=== PATIENT | female | born 1945 | race Caucasian/White ===

== ENCOUNTER 2022-10-27 10:26 | Inpatient (IN) | payer OTHER ==
--- OUTSIDE RECORDS SUMMARY | 2022-10-27 10:29 | XMS REPORT | Continuity of Care Document ---
:1945 Author Organization [facility] t Address [address] [place] [address] [place] [id number] Care Team Providers Name Role Phone BLAINE TURNER Primary Care Physician Unavailable Kwadwo Michel Attending Clinician Unavailable Edgar Tomlinson Attending Clinician Kimberly Tovar Attending Clinician Unavailable David Huertas MD Attending Clinician DAVID HUERTAS Attending Clinician Unavailable RADIOLOGY Attending Clinician Unavailable Radiology Attending Clinician Unavailable Doctor Unassigned, [place] Attending Clinician Unavailable Genet Auguste Attending Clinician GENET PIERCE Attending Clinician Unavailable Lavon Villanueva Attending Clinician Unavailable Kimberly Tovar Admitting Clinician Unavailable BLAINE TURNER Admitting Clinician Unavailable Physician, No Primary or Family Admitting Clinician Unavaila ble Payers Payer Name Policy Type Policy Number Effective Date Expiration Date S ource Problems Condition Condition Condition Status Onset Resolution Last Treating Co mments Source Name Details Category Date Date Treatment Clinician Date Hyperlipid Hyperlipi Problem Active 2022-05-06 Memoria emia demia 14:40:21 l (disorder) (disorder) He collins Active Problem 05/06/2022 [facility] Hypothyroi Problem Active 2022-05-06 Sari you dism Hypothyroi 14:40:21 l (disorder) dism Dinesh n (disorder) Active Problem 05/06/2022 [facility] Migraine Migraine Problem Active 2022-05-06 Memoria (disorder) (disorder) 14:40:21 l Active Juan David Problem 05/06/2022 [facility] No known No known Disease Unive rs active active ity of problems problems [facility] Allergies, Adverse Reactions, Alerts Allergy Allergy Status Severity Reaction(s) Onset Inactive Treating Comm ents Source Name Type Date Date Clinician CODEINE DRUG Active N/V 2014-02 Univers INGREDI 1-05 ity of 00:00: [place] [address] [place] [address] Codeine Propensi Active Nausea 2014-02 Univers ty to and/or 02-17 ity of adverse Vomiting 00:00: [place] reaction [address] [place] [address] s [place] CODEINE DA Active U NAUSEA 2012-02 [facility] 0-02 [place] 00:00: d 00 [facility] No Known DA Active U 2002-0 [facility] Contrast 9-13 [place] Allergie 00:00: d s 00 [facility] No Known DA Active U 2002-0 [facility] Food 9-13 [place] Allergie 00:00: d s 00 [facility] No Known DA Active U 2002-0 [facility] Other 9-13 [place] Allergie 00:00: d s 00 [facility] codeine codeine Active Ciraoria l Juan David traMADol traMADol Active Memori a l Juan David Social History Social Habit Start Date Stop Date Quantity Comments Source Exposure to Not sure University of SARS-CoV-2 (event) [place] [facility] [place] History SDVT University o f Alcohol Frequency [facility] edical Branch History [facility] University o f Alcohol Std Drinks [place] [facility] [place] History [facility] University o f Alcohol Binge [place] [facility] Alcohol intake 2021-04-15 2021-04-15 0 /d University of 00:00:00 00:00:00 [facility] Alcohol Comment 2015-02-19 2015-02-19 Social Drinker Unive rsity of 00:00:00 00:00:00 [facility] Tobacco use and 2014-12-18 2014-12-18 Never used Universit y of exposure 00:00:00 00:00:00 [facility] Sex [birth year] Universit y of 00:00:00 00:00:00 [facility] Smoking Status Start Date Stop Date Source Tobacco smoking status 2022-05-03 15:09:32 2022-05-03 15:09:32 [facility] [place] Medications Ordered Filled Start Stop Current Ordering Indication Dosage Frequency Signature Comments Components Source Medication Medication Date Date Medication? Clinician (SIG) Name Name famotidine Yes TAKE ONE Mem oria 20 mg oral 3-21 (1) l tablet 15:40: TABLET(S) Dinesh n 00 BY MOUTH AT BEDTIME. famotidine Yes TAKE ONE Mem oria 20 mg oral 3-21 (1) l tablet 15:40: TABLET(S) Dinesh n 00 BY MOUTH AT BEDTIME. Emgality 2022-0 Yes 120 mg, Memori a Prefilled 1-30 SUB-Q, l Syringe 120 17:34: qMonth, # H [place] mg/mL 00 1 kit, 9 subcutaneou Refill(s), s solution 167.64, cm, 11/03/21 10:19:00 CDT, Height, 71.42, kg, 11/03/21 10:19:00 CDT, Weight Emgality 2022-0 Yes 120 mg, Memori a Prefilled 1-30 SUB-Q, l Syringe 120 17:34: qMonth, # H [place] mg/mL 00 1 kit, 9 subcutaneou Refill(s), s solution 167.64, cm, 11/03/21 10:19:00 CDT, Height, 71.42, kg, 11/03/21 10:19:00 CDT, Weight Emgality 2021-0 Yes 120 mg, Memori a Prefilled 7-19 SUB-Q, l Syringe 120 15:30: qMonth, # H [place] mg/mL 00 1 kit, 9 subcutaneou Refill(s) s solution Emgality 2-0 Yes 120 mg, Memori a Prefilled 7-19 SUB-Q, l Syringe 120 15:30: qMonth, # H [place] mg/mL 00 1 kit, 9 subcutaneou Refill(s) s solution SUMAtriptan Yes See Memori a 100 mg oral 5-13 Instructio l tablet 22:21: ns, TAKE [place] 00 ONE (1) TABLET(S) BY MOUTH NEEDED FOR MIGRAINE (MAX OF 1 TAB DAILY)., # 9 ea, 2 Refill(s), Pharmacy: [place] [facility] [id number], 167.64, cm, 05/03/21 12:09:00 CDT, Height, 81.364, kg, 05/03/21 12:09:00 CDT, Weight SUMAtriptan Yes See Memori a 100 mg oral 5-13 Instructio l tablet 22:21: ns, TAKE Juan David 00 ONE (1) TABLET(S) BY MOUTH NEEDED FOR MIGRAINE (MAX OF 1 TAB DAILY)., # 9 ea, 2 Refill(s), Pharmacy: [facility] [id number], 167.64, cm, 05/03/21 12:09:00 CDT, Height, 81.364, kg, 05/03/21 12:09:00 CDT, Weight 1 ML 2020-02 Yes 120 mg, Memoria galcanezuma 1-03 SUB-Q, l b-gnlm 120 16:46: qMonth, # He rmann MG/ML 00 1 kit, 3 Prefilled Refill(s) Syringe [Emgality] 1 ML 2020-02 Yes 120 mg, Memoria galcanezuma 1-03 SUB-Q, l b-gnlm 120 16:46: qMonth, # He r[place] MG/ML 00 1 kit, 3 Prefilled Refill(s) Syringe [Emgality] Aspirin, Yes 81mg Take 81 mg Uni vers Buffered 11-11 by mouth ity of (BUFFERIN) 10:13: daily. [place] 81 mg 27 Medical tablet Branch Flaxseed Yes 1{capsu Take 1 Cap Univers Oil ,030 11-11 le} by mouth ity of mg Cap 10:13: daily. [place] [address] Medical Branch CALCIUM Yes 1{tbl} Take 1 Tab Un alaina CARBONATE/V 11-11 by mouth ity of ITAMIN D3 10:13: daily. [place] (VITAMIN 27 Medical D-3 ORAL) Branch meloxicam Yes [id number] 7.5mg Take 1 Univers 7.5 mg 11-11 tablet by ity of tablet 00:00: mouth [place] 00 daily. Medical Branch 1 ML 2018-02 Yes 120 mg, Memoria galcanezuma -22 SUB-Q, l b-gnlm 120 17:20: qMonth, # He rmann MG/ML 00 4 syr, 3 Prefilled Refill(s), Syringe other [Emgality] 1 ML 2018-02 Yes 120 mg, Memoria galcanezuma -22 SUB-Q, l b-gnlm 120 17:20: qMonth, # He rmann MG/ML 00 4 syr, 3 Prefilled Refill(s), Syringe other [Emgality] pramipexole 2018-02 Yes 0.75 mg = M emoria 0.75 mg 03-06 1 tab, PO, l oral tablet 17:07: Daily, # He rmann 00 30 tab, 0 Refill(s) pramipexole 2018-02 Yes 0.75 mg = M emoria 0.75 mg 03-06 1 tab, PO, l oral tablet 17:07: Daily, # He rmann 00 30 tab, 0 Refill(s) Emgality-gn Yes See Memori a lm 120 9-04 Instructio l mg/mL 18:33: ns, 120 mg Dinesh n subcutaneou 55 IM Q30D / s solution Samples given 2-120mg inj- Pens, # 2 pen(s), 0 Refill(s), given to patient Emgality-gn Yes See Memori a lm 120 9-04 Instructio l mg/mL 18:33: ns, 120 mg Dinesh n subcutaneou 55 IM Q30D / s solution Samples given 2-120mg inj- Pens, # 2 pen(s), 0 Refill(s), given to patient Emgality-gn Yes 120 mg, Mem oria lm 120 5-16 SUB-Q, l mg/mL 22:28: qMonth, [place] subcutaneou 23 240 mg s solution first month then 120mg q month, # 4 syr, 3 Refill(s), Pharmacy: [facility] Emgality-gn Yes 120 mg, Mem oria lm 120 5-16 SUB-Q, l mg/mL 22:28: qMonth, [place] subcutaneou 23 240 mg s solution first month then 120mg q month, # 4 syr, 3 Refill(s), Pharmacy: [facility] No 120 mg, Mem oria lm 120 5-14 SUB-Q, l mg/mL 18:43: qMonth, [place] subcutaneou 00 240 mg s solution first month then 120mg q month, X 180 day, # 4 syr, 3 Refill(s), Pharmacy: [facility] No 120 mg, Mem oria lm 120 5-14 SUB-Q, l mg/mL 18:43: qMonth, Juan David subcutaneou 00 240 mg s solution first month then 120mg q month, X 180 day, # 4 syr, 3 Refill(s), Pharmacy: [facility] [place] 7 Yes 1 patch, Me moria mcg/hr 3 TOP, l transdermal 16:46: qWeek, # 4 Juan David film, 00 patch, 0 extended Refill(s) release fluticasone Yes NASAL, Tee lucio nasal 0.05 3- Daily, 0 l mg/inh 16:46: Refill(s) Dinesh n spray 00 diclofenac 2018- Yes 75 mg = 1 Me moria sodium 75 - tab, PO, l mg oral 16:46: BID, 0 Juan David enteric 00 Refill(s) coated, delayed-rel ease tablet naloxone-pe Yes 1 tab, PO, Memoria ntazocine - Q4H, 0 l 0.5 mg-50 16:46: Refill(s) Her wise mg oral 00 tablet omeprazole 2018- Yes 40 mg = 1 Me moria 40 mg oral 3-29 cap, PO, l delayed 16:46: Daily, # Dinesh n release 00 30 cap, 0 capsule Refill(s) [place] 7 Yes 1 patch, Me moria mcg/hr 3-29 TOP, l transdermal 16:46: qWeek, # 4 [place] film, 00 patch, 0 extended Refill(s) release fluticasone 2018-0 Yes NASAL, Tee lucio nasal 0.05 3-29 Daily, 0 l mg/inh 16:46: Refill(s) Dinesh n spray 00 diclofenac Yes 75 mg = 1 Me moria sodium 75 3-29 tab, PO, l mg oral 16:46: BID, 0 Juan David enteric 00 Refill(s) coated, delayed-rel ease tablet naloxone-pe Yes 1 tab, PO, Memoria ntazocine 3-29 Q4H, 0 l 0.5 mg-50 16:46: Refill(s) Her wise mg oral 00 tablet omeprazole Yes 40 mg = 1 Me moria 40 mg oral 3-29 cap, PO, l delayed 16:46: Daily, # Dinesh n release 00 30 cap, 0 capsule Refill(s) rosuvastati Yes 5 mg = 1 Me moria n 5 mg oral 3-29 tab, PO, l tablet 16:35: Bedtime, # Jovita nn 00 30 tab, 0 Refill(s) rosuvastati Yes 5 mg = 1 Me moria n 5 mg oral 3-29 tab, PO, l tablet 16:35: Bedtime, # Jovita nn 00 30 tab, 0 Refill(s) levothyroxi Yes 125 Memori a ne 125 mcg 3-29 microgram l (0.125 mg) 16:29: = 1 tab, Her wise oral tablet 00 PO, Daily, # 30 tab, 0 Refill(s) levothyroxi Yes 125 Memori a ne 125 mcg 3-29 microgram l (0.125 mg) 16:29: = 1 tab, Her wise oral tablet 00 PO, Daily, # 30 tab, 0 Refill(s) GABAPENTIN 2017-02 Yes TAKE ONE Uni vers 300 mg 0-11 (1) ity of capsule 00:00: [place] 00 BY MOUTH Medical THREE Branch TIMES A DAY FOR 30 DAYS. pentazocine Yes TAKE ONE Un alaina -naloxone 1-10 (1) TO TWO ity of 50-0.5 mg 00:00: (2) [place] tablet 00 TABLET(S) Medical BY MOUTH Branch EVERY SIX HOURS NEEDED FOR PAIN. omeprazole 2016-02 Yes 40mg Take 40 mg U nivers (PRILOSEC) 2-06 by mouth ity o f 40 mg 13:07: daily. [place] capsule 40 Medical Branch ibuprofen 2016-02 Yes 800mg Take 800 Uni vers (MOTRIN) 2-06 mg by ity of 800 mg 13:07: mouth [place] tablet 40 every 6 Medical (six) Branch hours as needed. VITAMIN B 2016-02 Yes 1{tbl} Take 1 Tab Univers COMPLEX 2-06 by mouth ity of ORAL 13:07: daily. [place] 40 Medical Branch meloxicam Yes 15mg Take 15 mg Un alaina (MOBIC) 15 2-15 by mouth ity o f mg tablet 15:40: daily. [place] 32 Medical Branch sumatriptan Yes 100mg Take 100 U nivers (IMITREX) 2-15 mg by ity of 100 mg 15:40: mouth as [place] tablet 32 needed for Medical Migraine. Branch acetaminoph Yes 1{tbl} Take 1 Un alaina en-codeine 2-06 tablet by ity of (TYLENOL-CO 00:00: mouth [place] DEINE #3) 00 every 4 Medical 300-30 mg (four) Branch tablet hours as needed for Pain (scale 4-6) or Pain (scale 7-10). levothyroxi 2015-02 Yes 125ug Take 125 U nivers ne 125 mcg 1-23 mcg by ity of tablet 00:00: mouth [place] 00 daily. Medical Branch montelukast Yes 10mg Take 10 mg Univers (SINGULAIR) 9-30 by mouth ity of 10 mg 00:00: daily. [place] tablet 00 Medical Branch rosuvastati Yes 5mg Take 5 mg U nivers n (CRESTOR) 9-29 by mouth ity of 5 mg tablet 00:00: [place]. [place] 00 [place] pantoprazol Yes Univer s e 9-29 ity of (PROTONIX) 00:00: [place] 40 mg EC 00 Medical tablet Branch lidocaine-p Yes 1{dose} Apply 1 Univers rilocaine 9-23 Dose to ity of (EMLA) 00:00: area(s) as [place] 2.5-2.5 % 00 needed. Medical cream Branch Vital Signs Vital Name Observation Time Observation Value Comments Source Systolic blood 2021-04-15 16:27:00 118 mm[Hg] Univer sity of pressure [facility] Diastolic blood 2021-04-15 16:27:00 69 mm[Hg] Unive rsity of pressure [facility] Heart rate 2021-04-15 16:27:00 63 /min [facility]i [facility] Body height 2021-04-15 16:27:00 [facility] weight 2021-04-15 16:27:00 79.833 [facility] BMI 2021-04-15 16:27:00 [facility] O[facility] saturation in 2021-04-15 16:27:00 99 /min [facility] Arterial blood by [facility] Pulse oximetry Branch Systolic (mm Hg) 2022-05-03 15:09:00 Tee rial [place] Diastolic (mm Hg) 2022-05-03 15:09:00 Mem orial Juan David Heart Rate 2022-05-03 15:09:00 [facility] Juan David Height 2022-05-03 15:09:00 5 [ft_i] [facility] David Weight 2022-05-03 15:09:00 [facility] Calculated 2022-05-03 15:09:00 Memori al [place] Systolic (mm Hg) 2021-11-03 15:09:00 Tee rial [place] Diastolic (mm Hg) 2021-11-03 15:09:00 Mem orial [place] Heart Rate 2021-11-03 15:09:00 [facility] [place] Respitory Rate 2021-11-03 15:09:00 Memori al Juan David Height 2021-11-03 15:09:00 167.64 cm [facility] [place] Weight 2021-11-03 15:09:00 [facility] Juan David BMI Calculated 2021-11-03 15:09:00 [facility] [place] Systolic (mm Hg) 2021-05-03 16:59:00 Tee rial Juan David Diastolic (mm Hg) 2021-05-03 16:59:00 Mem orial [place] Heart Rate 2021-05-03 16:59:00 [facility] Juan David Respitory Rate 2021-05-03 16:59:00 [facility] [place] Height 2021-05-03 16:59:00 167.64 cm [facility] David Weight 2021-05-03 16:59:00 [facility] [place] BMI Calculated 2021-05-03 16:59:00 [facility] [place] Systolic (mm Hg) 2020-07-31 19:55:00 Tee rial [place] Diastolic (mm Hg) 2020-07-31 19:55:00 Mem orial Juan David Heart Rate 2020-07-31 19:55:00 [facility] [place] Respitory Rate 2020-07-31 19:55:00 Memori al Juan David Height 2020-07-31 19:55:00 170.18 cm [facility] Juan David Weight 2020-07-31 19:55:00 [facility] Juan David BMI Calculated 2020-07-31 19:55:00 [facility] [place] Systolic (mm Hg) 2019-12-10 16:45:00 Tee rial Juan David Diastolic (mm Hg) 2019-12-10 16:45:00 Mem orial Juan David Heart Rate 2019-12-10 16:45:00 [facility] [place] Respitory Rate 2019-12-10 16:45:00 Memori al Juan David Height 2019-12-10 16:45:00 167.64 cm [facility] Juan David Weight 2019-12-10 16:45:00 [facility] [place] BMI Calculated 2019-12-10 16:45:00 Memori al Juan David Diastolic (mm Hg) 2019-06-27 14:08:00 Mem orial Juan David Heart Rate 2019-06-27 14:08:00 [facility] David Respitory Rate 2019-06-27 14:08:00 [facility] [place] Temperature Oral (F) 2019-06-27 14:08:00 98.0 F [facility] [place] Height 2019-06-27 14:08:00 170.18 cm [facility] [place] Weight 2019-06-27 14:08:00 [facility] [place] BMI Calculated 2019-06-27 14:08:00 [facility] [place] Systolic (mm Hg) 2019-06-27 14:08:00 Tee rial [place] Systolic (mm Hg) 2019-05-15 15:06:00 Tee rial Juan David Diastolic (mm Hg) 2019-05-15 15:06:00 Mem o[facility] [place] Heart Rate 2019-05-15 15:06:00 [facility] [place] Respitory Rate 2019-05-15 15:06:00 [facility] [place] Temperature Oral (F) 2019-05-15 15:06:00 97.9 F [facility] [place] Height 2019-05-15 15:06:00 182.88 cm [facility] [place] Weight 2019-05-15 15:06:00 [facility] [place] BMI Calculated 2019-05-15 15:06:00 Memori al Juan David Heart Rate 2019-01-04 16:55:00 [facility] David Respitory Rate 2019-01-04 16:55:00 Memori al Juan David Height 2019-01-04 16:55:00 170.18 cm [facility] Juan David Weight 2019-01-04 16:55:00 [facility] Juan David BMI Calculated 2019-01-04 16:55:00 Memori al Juan David Systolic (mm Hg) 2019-01-04 16:55:00 Tee rial Juan David Diastolic (mm Hg) 2019-01-04 16:55:00 Mem orial [place] Weight 2018-06-26 18:11:00 [facility] Juan David BMI Calculated 2018-06-26 18:11:00 [facility] [place] Respitory Rate 2018-06-26 18:11:00 Memori [facility] [place] Heart Rate 2018-06-26 18:11:00 [facility] Juan David Systolic (mm Hg) 2018-06-26 18:11:00 Tee rial Juan David Diastolic (mm Hg) 2018-06-26 18:11:00 Mem orial Juan David Height 2018-06-26 18:11:00 170.18 cm [facility] [place] BMI Calculated 2018-06-07 15:49:00 Memori al [place] Height 2018-06-07 15:49:00 170.18 cm [facility] [place] Weight 2018-06-07 15:49:00 [facility] Juan David Heart Rate 2018-06-07 15:49:00 [facility] [place] Systolic (mm Hg) 2018-06-07 15:49:00 Tee rial Juan David Diastolic (mm Hg) 2018-06-07 15:49:00 Mem orial [place] Respitory Rate 2018-06-07 15:49:00 Memori al [place] Procedures Procedure Date / Time Performed Performing Clinician [facility] e Laminectomy for [facility] [place] decompression and exploration Encounters Start End Encounter Admission Attending Care Care Encounter Source Date/Time Date/Time Type Type Clinicians Facility Department ID 2021-03-10 Outpatient Anand [facility] [id number] Common 13:12:50 [facility] [id number] [facility] 2022-11-09 2022-11-09 Outpatient MHIE MHIE [id number] Memoria 10:00:00 10:00:00 17 darcy Fall 2022-11-09 2022-11-09 Outpatient MHIE MHIE [id number] Memoria 10:00:00 10:00:00 17 darcy Fall 2022-10-25 2022-10-25 Outpatient MHIE MHIE [id number] Memoria 10:00:00 10:00:00 16 darcy Fall 2022-10-25 2022-10-25 Outpatient MHIE MHIE [id number] Memoria 10:00:00 10:00:00 16 darcy Fall 2022-05-03 2022-05-04 Outpatient MHIE MNA [id number] Memoria 15:00:00 04:59:59 Neurology 15 l Pietro Terryann 2022-05-03 2022-05-04 Outpatient MHIE MNA [id number] Memoria 15:00:00 04:59:59 Neurology 15 l [place] Terryann 2022-05-03 2022-05-03 Outpatient KARINA TomlinsonSCHER MHMISCHER [id number] 10:00:00 23:59:59 Edgar 15 Black 2022-05-03 2022-05-03 Outpatient MHIE MHIE [id number] Memoria 10:00:00 10:00:00 15 darcy Fall 2021-11-03 2021-11-04 Outpatient nullFlavo MNA [id number] Memoria 15:00:00 04:59:59 r Neurology 14 l Pietro Terryann 2021-11-03 2021-11-04 Outpatient nullFlavo MNA [id number] Memoria 15:00:00 04:59:59 r Neurology 14 l Pietro Terryann 2021-11-03 2021-11-03 Outpatient ASIM TomlinsonMISCHER MHMISCHER [id number] 10:00:00 23:59:59 Edgar 14 Black 2021-11-03 2021-11-03 Outpatient MHIE MHIE [id number] Memoria 10:00:00 10:00:00 14 darcy Fall 2021-05-06 2021-05-06 Outpatient RM Tovar, [facility] JEY [id number] [facility] 12:00:00 12:00:[address] [facility] 2021-05-03 2021-05-04 Outpatient nullFlavo MNA [id number] Memoria 16:45:00 04:59:59 r Neurology 13 l Pietro Juan David 2021-05-03 2021-05-04 Outpatient nullFlavo MNA [id number] Memoria 16:45:00 04:59:59 r Neurology 13 l Pietro Juan David 2021-05-03 2021-05-03 Outpatient Bushra MHMISCHER MHMISCHER [id number] 11:45:00 23:59:59 Edgar 13 Black 2021-05-03 2021-05-03 Outpatient MHIE MHIE [id number] Memoria 11:45:00 11:45:00 13 darcy Juan David 2021-04-15 2021-04-15 [facility] [id number] [facility] 10:30:00 11:40:21 [id number] it y of АННА [id number] Ozzie as CATHY?BLEA [id number] [address] MEDICAL OFFICE BUILDING 2021-04-15 2021-04-15 Outpatient R TU [facility] [id number] Univers 10:30:00 11:40:21 DAVID valle [facility] 2021-04-15 2021-04-15 Out[facility] [id number] Univers 10:30:00 10:30:00 [facility] 2021-04-06 2021-04-06 Outpatient R RADIOLOGY [facility] [id number] Univers 09:00:17 23:59:00 ity [facility] 2021-04-06 2021-04-06 Hospital Radiology [facility] [id number] Univers 09:00:00 23:59:00 Encounter АННА [id number] ity [facility] [id number] [place] [id number] [facility] 807 Branch 2021-04-06 2021-04-06 Orders Doctor SHWETA [id number] Univers 00:00:00 00:00:00 Only Unassigned, SARA [id number] ity of [place] [facility] [id number] [facility] [place] [facility] [id number] [facility] 009 Branch 2020-07-31 2020-08-01 Outpatient nullFlavo MNA [id number] Memoria 20:00:00 04:59:59 r Neurology 12 l Pietro Fall 2020-07-31 2020-08-01 Outpatient nullFlavo MNA [id number] Memoria 20:00:00 04:59:59 r Neurology 12 l Pietro Terryann 2020-07-31 2020-07-31 Outpatient KARINA TomlinsonSCHZIYAD MISCHER [id number] 15:00:00 23:59:59 Edgar Noam Cleaning 2020-07-31 2020-07-31 Outpatient MHIE MHIE [id number] Memoria 15:00:00 15:00:00 12 darcy Fall 2020-07-16 2020-07-16 Ambulatory nullFlavo MNA [id number] Memoria 20:30:00 20:30:00 Pre-Reg r Neurology 11 l Pietro Fall 2020-07-16 2020-07-16 Ambulatory nullFlavo MNA [id number] Memoria 20:30:00 20:30:00 Pre-Reg r Neurology 11 l Pietro Fall 2020-07-16 2020-07-16 Outpatient MHIE MHIE [id number] Memoria 15:30:00 15:30:00 11 darcy Fall 2020-07-16 2020-07-16 Outpatient KARINA TomlinsonSCHZIYAD MISCHER [id number] 15:30:00 15:30:00 Edgar Josette Cleaning 2020-07-09 2020-07-09 Ambulatory nullFlavo MNA [id number] Memoria 20:15:00 20:15:00 Pre-Reg r Neurology 10 darcy Terryann 2020-07-09 2020-07-09 Ambulatory nullFlavo MNA [id number] Memoria 20:15:00 20:15:00 Pre-Reg r Neurology 10 l Pietro Fall 2020-07-09 2020-07-09 Outpatient MHIE MHIE [id number] Memoria 15:15:00 15:15:00 10 l Juan David 2020-07-09 2020-07-09 Outpatient Bushra MHINSCHER MHMISCHER [id number] 15:15:00 15:15:00 Edgarmayda Cleaning 2020-03-17 2020-03-19 Outside nullFlavo MNA [id number] Memoria 21:38:32 05:59:59 Medical r Neurology 05 l Records Pietro Fall 2020-03-17 2020-03-19 Outside nullFlavo MNA [id number] Memoria 21:38:32 05:59:59 Medical r Neurology 05 l Records Pietro Fall 2020-03-17 2020-03-18 Outpatient MHMISCHER MHMISCHER [id number] 15:38:32 23:59:59 05 2020-03-11 2020-03-13 Outside nullFlavo MNA [id number] Memoria 15:29:44 05:59:59 Medical r Neurology 04 l Records Pietro Fall 2020-03-11 2020-03-13 Outside nullFlavo MNA [id number] Memoria 15:29:44 05:59:59 Medical r Neurology 04 l Records Pietro Fall 2020-03-11 2020-03-13 Outside nullFlavo MNA [id number] Memoria 15:28:50 05:59:59 Medical r Neurology 03 l Records Pietro Fall 2020-03-11 2020-03-13 Outside nullFlavo MNA [id number] Memoria 15:28:50 05:59:59 Medical r Neurology 03 l Records Pietro Fall 2020-03-11 2020-03-12 Outpatient MHMISCHER MHMISCHER [id number] 09:29:44 23:59:59 04 2020-03-11 2020-03-12 Outpatient MHMISCHER MHMISCHER [id number] 09:28:50 23:59:59 03 2020-02-05 2020-02-07 Outside nullFlavo MNA [id number] Memoria 17:25:21 05:59:59 Medical r Neurology 02 l Records Pietro Fall 2020-02-05 2020-02-07 Outside nullFlavo MNA [id number] Memoria 17:25:21 05:59:59 Medical r Neurology 02 l Records Pietro Fall 2020-02-05 2020-02-06 Outpatient MHMISCHER MHMISCHER [id number] 11:25:21 23:59:59 02 2019-12-10 2019-12-11 Outpatient nullFlavo MNA [id number] Memoria 16:45:00 04:59:59 r Neurology 09 l Pietro [place] 2019-12-10 2019-12-11 Outpatient nullFlavo MNA [id number] Memoria 16:45:00 04:59:59 r Neurology 09 l Pietro Juan David 2019-12-10 2019-12-10 [facility] [id number] 11:45:00 23:59:59 Edgar 09 Black 2019-12-10 2019-12-10 Outpatient MHIE MHIE [id number] Memoria 11:45:00 11:45:00 09 l [place] 2019-11-14 2019-11-14 Ambulatory nullFlavo MNA [id number] Memoria 18:15:00 18:15:00 Pre-Reg r Neurology 08 l Pietro [place] 2019-11-14 2019-11-14 Ambulatory nullFlavo MNA [id number] Memoria 18:15:00 18:15:00 Pre-Reg r Neurology 08 l [facility] [place] 2019-11-14 2019-11-14 Outpatient Bush[facility] [id number] 13:15:00 13:15:00 Edgar 08 [facility] 2019-11-12 2019-11-12 [facility] [id number] Univers 10:54:12 23:59:00 Encounter [facility] [id number] ity of Surgical [id number] Ozzie as Specialti [phone] Ut dical es [address] [place] 2019-11-12 2019-11-12 Office [facility] [id number] Univers 10:00:38 10:15:38 Visit Genet [facility] [id number] it y of Surgical [id number] Ozzie as Specialti [phone] Ut dical [address] 2019-11-12 2019-11-12 Outpatient Fely KARI [facility] [id number] Univers 10:00:00 10:00:00 GENET [facility] 2019-10-18 2019-10-18 Ambulatory nullFlavo MNA [id number] Memoria 20:00:00 20:00:00 Pre-Reg r Neurology 07 l [facility] [place] 2019-10-18 2019-10-18 Ambulatory nullFlavo MNA [id number] Memoria 20:00:00 20:00:00 Pre-Reg r Neurology 07 l Pietro Fall 2019-10-18 2019-10-18 Outpatient MHIE MHIE [id number] Memoria 15:00:00 15:00:00 08 l Juan David 2019-10-18 2019-10-18 Outpatient MHIE MHIE [id number] Memoria 15:00:00 15:00:00 07 l Juan David 2019-10-18 2019-10-18 Outpatient ASIM TomlinsonMISCHER MHMISCHER [id number] 15:00:00 15:00:00 Edgar 07 Black 2019-09-27 2019-09-27 Outpatient GLORIA Valdez JEY [id number] [facility] 12:00:00 12:00:[id number] [facility] 2019-06-27 2019-06-28 Outpatient nullFlavo MNA [id number] Memoria 14:00:00 04:59:59 r Neurology 06 l Pietro Fall 2019-06-27 2019-06-28 Outpatient nullFlavo MNA [id number] Memoria 14:00:00 04:59:59 r Neurology 06 l [facility] [place] 2019-06-27 2019-06-27 Outpatient ASIM TomlinsonMISCHER MHMISCHER [id number] 09:00:00 23:59:59 Edgar 06 Black 2019-06-27 2019-06-27 Outpatient MHIE MHIE [id number] Memoria 09:00:00 09:00:00 06 darcy Fall 2019-01-04 2019-01-05 Outpatient nullFlavo MNA [id number] Memoria 17:00:00 05:59:59 r Neurology 05 darcy Fall 2019-01-04 2019-01-05 Outpatient nullFlavo MNA [id number] Memoria 17:00:00 05:59:59 r Neurology 05 darcy Fall 2019-01-04 2019-01-04 [facility] [id number] 11:00:00 23:59:59 Edgar Yesi Cleaning 2019-01-04 2019-01-04 Outpatient MHIE MHIE [id number] Memoria 11:00:00 11:00:00 05 darcy Fall 2018-11-30 2018-11-30 Ambulatory nullFlavo MNA [id number] Memoria 18:00:00 18:00:00 Pre-Reg r Neurology 04 l Pietro Fall 2018-11-30 2018-11-30 Ambulatory nullFlavo MNA [id number] Memoria 18:00:00 18:00:00 Pre-Reg r Neurology 04 l Pietro Fall 2018-11-30 2018-11-30 [facility] [id number] 13:00:00 13:00:00 Edgar Jamie Cleaning 2018-11-20 2018-11-20 Outpatient MHIE MHIE [id number] Memoria 15:00:00 15:00:00 04 darcy Fall 2018-09-24 2018-09-26 Outside nullFlavo MNA [id number] Memoria 14:44:23 04:59:59 Medical r Neurology 01 l Records Pietro Fall 2018-09-24 2018-09-26 Outside nullFlavo MNA [id number] Memoria 14:44:23 04:59:59 Medical r Neurology 01 l Loco Fall 2018-09-24 2018-09-25 Outpatient MHMISCHER MHMISCHER [id number] 09:44:23 23:59:59 2018-09-05 2018-09-07 Outside nullFlavo MNA [id number] Memoria 14:48:05 04:59:59 Medical r Neurology 00 l Records Pietro Fall 2018-09-05 2018-09-07 Outside nullFlavo MNA [id number] Memoria 14:48:05 04:59:59 Medical r Neurology 00 l Loco Fall 2018-09-05 2018-09-06 Outpatient MHMISCHER MHMISCHER [id number] 09:48:05 23:59:59 00 2018-08-21 2018-08-21 Ambulatory nullFlavo MNA [id number] Memoria 18:00:00 18:00:00 Pre-Reg r Neurology 03 l Pietro Fall 2018-08-21 2018-08-21 Ambulatory nullFlavo MNA [id number] Memoria 18:00:00 18:00:00 Pre-Reg r Neurology 03 l Pietro Fall 2018-08-21 2018-08-21 Outpatient MHIE MHIE [id number] Memoria 13:00:00 13:00:00 03 darcy Fall 2018-08-21 2018-08-21 Outpatient [facility] [id number] 13:00:00 13:00:00 Edgar 03 Black 2018-06-26 2018-06-27 Outpatient nullFlavo MNA [id number] Memoria 18:00:00 04:59:59 r Neurology 02 darcy Terryann 2018-06-26 2018-06-27 Outpatient nullFlavo MNA [id number] Memoria 18:00:00 04:59:59 r Neurology 02 darcy Terryann 2018-06-26 2018-06-26 Outpatient Bushra MANJUSCHZIYAD [facility] [id number] 13:00:00 23:59:59 Edgar Florian Black 2018-06-26 2018-06-26 Outpatient MHIE MHIE [id number] Memoria 13:00:00 13:00:00 02 darcy Fall 2018-06-07 2018-06-08 Outpatient nullFlavo MNA [id number] Memoria 15:45:00 04:59:59 r Neurology 01 darcy Terryann 2018-06-07 2018-06-08 Outpatient nullFlavo MNA [id number] Memoria 15:45:00 04:59:59 r Neurology 01 darcy Terryann 2018-06-07 2018-06-07 Outpatient ASIM TomlinsonINSCHER MISCHER [id number] 10:45:00 23:59:59 Edgar Black 2018-06-07 2018-06-07 Outpatient Bushra MISCHER MHMISCHER [id number] 10:45:00 23:59:59 Edgar [facility] 2018-06-07 2018-06-07 Outpatient Bushra MHMISCHER MHMISCHER [id number] 10:45:00 23:59:59 Edgar [facility] 2018-06-07 2018-06-07 Outpatient Bushra MISCHER MHMISCHER [id number] 10:45:00 23:59:59 Edgar [facility] 2018-06-07 2018-06-07 Outpatient MHIE MHIE [id number] Memoria 10:45:00 10:45:00 01 darcy Fall 2018-05-11 2018-05-11 Outpatient MHIE MHIE [id number] Memoria 11:30:00 11:30:00 00 darcy Fall 2018-05-11 2018-05-11 Outpatient MHIE MHIE [id number] Memoria 11:30:00 11:30:00 00 darcy Fall Results This patient has no known results.
[2022-10-27 11:14] LABS: Absolute Lymphocytes (CBC) 0.7 K/uL (0.7-4.9); Lymphocytes % 12.9 % (15.3-44.8); MCV 87.9 fL (80-100); MPV 6.8 fL (7.6-11.3); Platelets 331 thou/uL (152-406); RBC Red Blood Cell Count 3.86 M/uL (3.86-4.86)
[2022-10-27 11:16] LABS: Protime INR 1.17
[2022-10-27 11:32] LABS: Albumin 2.5 g/dL (3.4-5.0); Bilirubin Direct 0.1 mg/dL (0-0.2); Bilirubin Indirect, Calculated 0.4 mg/dL (0.2-0.8); Bilirubin Total 0.5 mg/dL (0.2-1.0); C-Reactive Protein 90.9 mg/L (<3.00); Magnesium 1.7 mg/dL (1.6-2.4); Protein, Total 6.3 g/dL (6.4-8.2)
[2022-10-27] MEDS ORDERED: CEFTRIAXONE 1000 MG/VIAL ONE (11:54)
[2022-10-27] MEDS ORDERED: AZITHROMYCIN 500 MG INJ IVPB ONE (11:54)
[2022-10-27] MEDS ORDERED: FAMOTIDINE 20 MG/2 ML VIAL IV ONE (11:55)
[2022-10-27] MEDS ORDERED: NA CHLORIDE 0.9% 1,000 ML ONE (11:55)
[2022-10-27] MEDS ORDERED: NA CHLORIDE 0.9% 250 ML ONE (11:55)
--- NOTE | 2022-10-27 12:17 | RAD REPORT ---
EXAM DESCRIPTION: RADChest Single View10/27/2022 11:57 am CLINICAL HISTORY: Congestion;Cough;Dyspnea COMPARISON: Chest Single View dated 10/24/2022; Chest Single View dated 10/21/2022; Chest Pa And Lat (2 Views) dated 08/27/2021; Chest For Pe Angio dated 10/24/2022 TECHNIQUE: Portable AP view of the chest. FINDINGS: Patchy peripheral predominant airspace opacities more so at the bases, probably stable sin ce the prior CT. No pneumothorax or effusion. The cardiomediastinal contours are unremarkable. IMPRESSION: Stable bilateral basal predominant and peripheral airspace opacities as above, concernin g for pneumonia.
[2022-10-27] MEDS ORDERED: METHYLPREDNISOLONE 125 MG INJ ONE (12:46)
[2022-10-27] MEDS ORDERED: ASPIRIN 81 MG CHEWABLE TABLET ONE (12:46)
[2022-10-27] MEDS ORDERED: MONTELUKAST 10 MG TAB PO ONE (13:00)
--- NOTE | 2022-10-27 13:50 | ER ---
Nurse's Notes [facility] Name: Ольга Ricci Age: 77 yrs Sex: Female : 1945 Arrival Date: 10/27/2022 Time: 10:26 Bed 6 Private MD: Diagnosis: Pneumonia due to SARS-associated coronavirus;SARS-associated coronavirus as the cause of diseases classified elsewhere;Hypoxemia;Pneumonia due to other specified infectious organisms-Bilateral Presentation: 10/27 10:50 Chief complaint: EMS states: recently diagnosed with COVID at end of Sep, she c/o diff iw breathing since last night , her home pulse ox read 70 % , EMS got 90 on RA, also reports vomiting started last night, she has had diarrhea since she was diagnosed , states they told her she has pneumonia and started her on abx , c/o right chest pain, worse when coughing. Coronavirus screen: Client presents with at least one sign or symptom that may indicate coronavirus-19. Ebola Screen: Patient negative for fever greater than or equal to 101.5 degrees Fahrenheit, and additional compatible Ebola Virus Disease symptoms Patient denies exposure to infectious person. Patient denies travel to an Ebola-affected area in the 21 days before illness onset. No symptoms or risks identified at this time. Initial Sepsis Screen: Does the patient have a suspected source of infection?. Risk Assessment: Do you want to hurt yourself or someone else? Patient reports no desire to harm self or others. Onset of symptoms was October 26, 2022. 10:50 Method Of Arrival: EMS: [facility] iw 10:50 Acuity: ANKUSH 3 iw Historical: - Allergies: 10:53 Codeine; iw 10:53 tramadol; iw - PMHx: 10:53 Gastric Reflux; Hypothyroidism; Migraine; iw - Immunization history:: Adult Immunizations up to date. - Family history:: not pertinent. Screenin:57 [facility] ED Fall Risk Assessment (Adult) History of falling in the last 3 months, ld1 including since admission No falls in past 3 months (0 pts). Abuse screen: Denies threats or abuse. Denies injuries from another. Nutritional screening: No deficits noted. Tuberculosis screening: No symptoms or risk factors identified. Assessment: 11:57 General: Appears in no apparent distress. comfortable, Behavior is calm, cooperative, ld1 appropriate for age. Pain: Denies pain. Neuro: Level of Consciousness is awake, alert, obeys commands, Oriented to person, place, time, situation. Cardiovascular: Capillary refill < 3 seconds Patient's skin is warm and dry. Respiratory: Airway is patent Respiratory effort is even, unlabored. GI: Abdomen is flat, non-distended. : No signs and/or symptoms were reported regarding the genitourinary system. EENT: No signs and/or symptoms were reported regarding the EENT system. Derm: No signs and/or symptoms reported regarding the dermatologic system. Musculoskeletal: No signs and/or symptoms reported regarding the musculoskeletal system. 14:08 Reassessment: Patient appears in no apparent distress at this time. No changes from ld1 previously documented assessment. Patient is alert, oriented x 3, equal unlabored respirations, skin warm/dry/pink. Vital Signs: 10:50 BP 132 / 72; Pulse 80; Resp 20; Pulse Ox 97% on 2 lpm NC; Weight 68.04 kg; Height 5 ft. iw 7 in. ; Pain 4/10; 11:56 BP 130 / 72; Pulse 67; Resp 18; Pulse Ox 99% on 3 lpm NC; ld1 14:08 BP 140 / 73; Pulse 58; Resp 18; Pulse Ox 100% on R/A; ld1 10:50 Body Mass Index 23.49 (68.04 kg, 170.18 cm) iw 10:50 Pain Scale: Adult iw ED Course: 10:37 Patient arrived in ED. luis alfredo 10:37 Андрей Diop MD is Attending Physician. luis alfredo 10:50 Azalia Guerrero, RN is Primary Nurse. iw 10:53 Triage completed. iw 10:53 Arm band placed on. iw 11:40 Blood Culture Adult (2) Sent. ld1 11:57 Patient has correct armband on for positive identification. Placed in gown. Bed in low ld1 position. Call light in reach. Side rails up X2. desk monitor on. Pulse ox on. NIBP on. Door closed. Noise minimized. Warm blanket given. 11:57 No provider procedures requiring assistance completed. Inserted saline lock: 20 gauge ld1 in left antecubital area, using aseptic technique. Blood collected. 11:59 XRAY Chest (1 view) In Process Unspecified. EDMS 13:46 Rayo Mcintyre MD is Hospitalizing Provider. luis alfredo Administered Medications: 11:56 Drug: NS 0.9% IV 500 ml Route: IV; Rate: bolus; Site: left antecubital; ld1 11:56 Drug: NS 0.9% IV 1000 ml Route: IV; Rate: 125 ml/hr; Site: left antecubital; ld1 11:56 Drug: Famotidine IVP 40 mg Route: IVP; Site: left antecubital; ld1 11:56 Drug: Rocephin IV 1 grams Route: IV; Rate: per protocol; Site: left antecubital; ld1 11:56 Drug: Zithromax IVPB 500 mg Route: IVPB; Infused Over: 1 hrs; Site: left antecubital; ld1 12:37 Drug: Aspirin PO 162 mg Route: PO; ld1 12:38 Drug: MethylPrednisoLONE IVP 125 mg Route: IVP; Site: left antecubital; ld1 13:46 Not Given (Not in pyxiss): Montelukast PO 10 mg PO once ld1 Outcome: 13:49 Decision to Hospitalize by Provider. [facility] 17:56 Patient left the ED. [facility] Signatures: Dispatcher [employer] EDАндрей Ruiz MD MD cha Williams, Irene, RN RN iw Lewis, Lynsay, RN RN [facility] Rachelle Taylor RN RN 1
--- NOTE | 2022-10-27 13:50 | EDPHYS ---
Physician Documentation [facility] Name: Ольга Ricci Age: 77 yrs Sex: Female : 1945 Arrival Date: 10/27/2022 Time: 10:26 Bed 6 Private MD: ED Physician Андрей Diop HPI: 10/27 13:35 This 77 yrs old Female presents to ER via EMS with complaints of sob, covid x luis alfredo 2 weeks, hypoxia. 13:35 The patient has shortness of breath at rest, with light activity. Onset: The luis alfredo symptoms/episode began/occurred 10 day(s) ago. Duration: The symptoms are continuous, and are steadily getting worse. The patient's shortness of breath is aggravated by coughing, supine position, talking, walking. The patient or guardian reports cough, difficulty breathing, flu symptoms, arthralgias, low-grade fever, myalgias. Modifying factors: The symptoms are alleviated by changing position, elevating head, remaining still, the symptoms are aggravated by activity, lying flat, talking. Associated signs and symptoms: Pertinent positives: non-productive cough. Severity of symptoms: At their worst the symptoms were moderate in the emergency department the symptoms are unchanged. The patient or guardian reports airway noise. Historical: - Allergies: 10:53 Codeine; iw 10:53 tramadol; iw - PMHx: 10:53 Gastric Reflux; Hypothyroidism; Migraine; iw - Immunization history:: Adult Immunizations up to date. - Family history:: not pertinent. ROS: 13:35 Constitutional: Negative for fever, chills, and weight loss, Eyes: Negative for injury, luis alfredo pain, redness, and discharge, ENT: Negative for injury, pain, and discharge, Neck: Negative for injury, pain, and swelling, Cardiovascular: Negative for chest pain, palpitations, and edema, Abdomen/GI: Negative for abdominal pain, nausea, vomiting, diarrhea, and constipation, Back: Negative for injury and pain, : Negative for injury, bleeding, discharge, and swelling, MS/Extremity: Negative for injury and deformity, Skin: Negative for injury, rash, and discoloration, Neuro: Negative for headache, weakness, numbness, tingling, and seizure, Psych: Negative for depression, anxiety, suicide ideation, homicidal ideation, and hallucinations, Allergy/Immunology: Negative for hives, rash, and allergies, Endocrine: Negative for neck swelling, polydipsia, polyuria, polyphagia, and marked weight changes, Hematologic/Lymphatic: Negative for swollen nodes, abnormal bleeding, and unusual bruising. 13:35 Respiratory: Positive for cough, dyspnea on exertion, shortness of breath, wheezing, expiratory. Exam: 13:35 Constitutional: This is a well developed, well nourished patient who is awake, alert, luis alfredo and in no acute distress. Head/Face: Normocephalic, atraumatic. Eyes: Pupils equal round and reactive to light, extra-ocular motions intact. Lids and lashes normal. Conjunctiva and sclera are non-icteric and not injected. Cornea within normal limits. Periorbital areas with no swelling, redness, or edema. ENT: Nares patent. No nasal discharge, no septal abnormalities noted. Tympanic membranes are normal and external auditory canals are clear. Oropharynx with no redness, swelling, or masses, exudates, or evidence of obstruction, uvula midline. Mucous membranes moist. Neck: Trachea midline, no thyromegaly or masses palpated, and no cervical lymphadenopathy. Supple, full range of motion without nuchal rigidity, or vertebral point tenderness. No Meningismus. Chest/axilla: Normal chest wall appearance and motion. Nontender with no deformity. No lesions are appreciated. Cardiovascular: Regular rate and rhythm with a normal S1 and S2. No gallops, murmurs, or rubs. Normal PMI, no JVD. No pulse deficits. Respiratory: Lungs have equal breath sounds bilaterally, clear to auscultation and percussion. No rales, rhonchi or wheezes noted. No increased work of breathing, no retractions or nasal flaring. Abdomen/GI: Soft, non-tender, with normal bowel sounds. No distension or tympany. No guarding or rebound. No evidence of tenderness throughout. Back: No spinal tenderness. No costovertebral tenderness. Full range of motion. Female : Normal external genitalia. Skin: Warm, dry with normal turgor. Normal color with no rashes, no lesions, and no evidence of cellulitis. MS/ Extremity: Pulses equal, no cyanosis. Neurovascular intact. Full, normal range of motion. Neuro: Awake and alert, GCS 15, oriented to person, place, time, and situation. Cranial nerves II-XII grossly intact. Motor strength 5/5 in all extremities. Sensory grossly intact. Cerebellar exam normal. Normal gait. Psych: Awake, alert, with orientation to person, place and time. Behavior, mood, and affect are within normal limits. 13:35 ECG was reviewed by the Attending Physician. Vital Signs: 10:50 BP 132 / 72; Pulse 80; Resp 20; Pulse Ox 97% on 2 lpm NC; Weight 68.04 kg; Height 5 ft. iw 7 in. ; Pain 4/10; 11:56 BP 130 / 72; Pulse 67; Resp 18; Pulse Ox 99% on 3 lpm NC; ld1 14:08 BP 140 / 73; Pulse 58; Resp 18; Pulse Ox 100% on R/A; ld1 10:50 Body Mass Index 23.49 (68.04 kg, 170.18 cm) iw 10:50 Pain Scale: Adult iw MDM: 10:38 Patient medically screened. [facility] 13:41 Differential diagnosis: Anxiety Reaction asthma, Bronchitis CHF exacerbation, Chronic luis alfredo Obstructive Pulmonary Disease obstructed airway, bronchitis, flu, URI, Myocardial Infarction pneumonia, Pneumothorax Psychogenic pulmonary edema, Pulmonary Embolism reactive airway disease, Sepsis. Antibiotic administration: Rocephin and Zithromax given. Differential Diagnosis: Obstructed Airway Bronchitis Influenza Upper Respiratory Infection Sinusitis Pharyngitis Asthma Exacerbation Viral Syndrome Pneumonia. Immunization status: Pneumococcal vaccine: within last 5 years. Influenza vaccine: within last 5 years. Data reviewed: vital signs, nurses notes, lab test result(s), EKG, radiologic studies, CT scan, plain films. Consideration of Admission/Observation Patient was admitted/placed on observation. Escalation of care including admission/observation considered. I considered the following discharge prescriptions or medication management in the emergency department Medications were administered in the Emergency Department. See MAR. Test considered but Not performed: Ultrasound no 2d echo. Historians other than the Patient: EMS: ems well informed. Care significantly affected by the following chronic conditions: gerd, hypothyroid. 10/27 10:40 Order name: Basic Metabolic Panel; Complete Time: 13:32 [facility] 10/27 10:40 Order name: CBC with Diff; Complete Time: :32 10/27 10:40 Order name: LFT's; Complete Time: :10/27 10:40 Order name: Magnesium; Complete Time: :10/27 10:40 Order name: NT PRO-BNP; Complete Time: 13:32 [facility] 10/27 10:40 Order name: PT-INR; Complete Time: 13:32 [facility] 10/27 10:40 Order name: Troponin HS; Complete Time: 13:32 [facility] 10/27 10:40 Order name: Blood Culture Adult (2) 10/27 10:40 Order name: Lactate w/ 2H reflex if indic.; Complete Time: 13:32 [facility] 10/27 10:40 Order name: CRP; Complete Time: 13:32 [facility] 10/27 10:40 Order name: XRAY Chest (1 view); Complete Time: 13:32 [facility] 10/27 10:40 Order name: EKG; Complete Time: 10:41 [facility] 10/27 10:40 Order name: Cardiac monitoring; Complete Time: 11:17 [facility] 10/27 10:40 Order name: EKG - Nurse/Tech; Complete Time: 12:58 [facility] 10/27 10:40 Order name: IV Saline Lock; Complete Time: 11:56 [facility] 10/27 10:40 Order name: Labs collected and sent; Complete Time: 11:40 [facility] 10/27 10:40 Order name: O2 Per Protocol; Complete Time: 11:17 [facility] 10/27 10:40 Order name: O2 Sat Monitoring; Complete Time: 11:17 [facility] EC:35 Rate is 62 beats/min. Rhythm is regular. QRS [place] is Normal. MI interval is normal. QRS luis alfredo interval is normal. QT interval is normal. No Q waves. No ST changes noted. Clinical impression: NSR w/ Non-specific ST/T Changes and No evidence of ischemia. Interpreted by me. Reviewed by me. Administered Medications: 11:56 Drug: NS 0.9% IV 500 ml Route: IV; Rate: bolus; Site: left antecubital; ld1 11:56 Drug: NS 0.9% IV 1000 ml Route: IV; Rate: 125 ml/hr; Site: left antecubital; ld1 11:56 Drug: Famotidine IVP 40 mg Route: IVP; Site: left antecubital; ld1 11:56 Drug: Rocephin IV 1 grams Route: IV; Rate: per protocol; Site: left antecubital; ld1 11:56 Drug: Zithromax IVPB 500 mg Route: IVPB; Infused Over: 1 hrs; Site: left antecubital; ld1 12:37 Drug: Aspirin PO 162 mg Route: PO; ld1 12:38 Drug: MethylPrednisoLONE IVP 125 mg Route: IVP; Site: left antecubital; ld1 13:46 Not Given (Not in pyxiss): Montelukast PO 10 mg PO once ld1 Disposition Summary: 10/27/22 13:49 Hospitalization Ordered Hospitalization Status: Inpatient Admission luis alfredo Provider: Rayo Mcintyre cha Location: Telemetry/MedSurg (Inpatient) luis alfredo Condition: Fair luis alfredo Problem: new luis alfredo Symptoms: have improved luis alfredo Bed/Room Type: Standard [facility] Room Assignment: 418(10/27/22 16:55) [email or web address] Diagnosis - Pneumonia due to SARS-associated coronavirus luis alfredo - SARS-associated coronavirus as the cause of diseases classified elsewhere luis alfredo - Hypoxemia luis alfredo - Pneumonia due to other specified infectious organisms - Bilateral luis alfredo Forms: - Medication Reconciliation Form luis alfredo - SBAR form luisa lfredo - Leadership Thank You Letter luis alfredo Signatures: Dispatcher [employer] [facility] Андрей Diop MD MD cha Williams, Irene, RN Kristie Schumacher [email or web address] Rachelle Taylor RN RN ld1 Corrections: (The following items were deleted from the chart) 10:50 10:41 Chest For PE Angio+CT.RAD.BRZ ordered. [facility] 16:55 13:49 luis alfredo [email or web address]
[2022-10-27] MEDS ORDERED: POTASSIUM CL SA 10 MEQ TAB PO ONE (15:52)
--- NOTE | 2022-10-27 16:34 | P.HP ---
Certification for Inpatient Patient admitted to: Inpatient With expected LOS: >2 Midnights Patient will require the following post-hospital care: None Practitioner: I am a practitioner with admitting privileges, knowledge of patient current condition, hospital course, and medical plan of care. Services: Services provided to patient in accordance with Admission requirements found in Title 42 Section 412.3 of the Code of Federal Regulations Patient History Date of Service: 10/27/22 Reason for admission: SOB, lightheaded History of Present Illness: This is a 77-year-old female presenting to the ER via EMS with complaints of shortness of breath, COVID (dx end of Sep), and lightheadedness which has been off and on for a few weeks. Associated symptoms of nausea, vomiting, and diarrhea started today. Patient called ambulance when she became extremely lightheaded and was sure she would faint as the room became dark. Patient denies cough, fever, chills, palpitations, CP, and SOMERS. ED course: BP 132 / 72; Pulse 80; Resp 20; Pulse Ox 97% on 2 LNC; Pain 4/10, CXR revealed stable bilateral basilar predominant and peripheral airspace opacities concerning for pneumonia. Labs reveal slight anemia with H/H 11.7/34.0, potassium 3.0, calcium 8.2, AST 43, ALT 72, C-reactive protein 90.90. Zithromax, Rocephin, Solu-Medrol, Singulair, IV fluids given in the ED. Patient's past medical history include gastric reflux, mild diverticulitis, migraine, and hypothyroidism. Patient will be admitted for further treatment of COVID pneumonia. Allergies codeine Allergy (Verified 09/04/13 14:21) Nausea/Vomiting - Past Medical/Surgical History Diabetic: No Past Medical History: Reviewed- Non-Contributory Review of Systems General: Weakness, Malaise Eyes: Unremarkable ENT: Unremarkable Respiratory: Shortness of Breath, As per HPI Cardiovascular: Light Headedness, As per HPI Gastrointestinal: Nausea, Vomiting, Diarrhea, As per HPI Genitourinary: Unremarkable Musculoskeletal: Unremarkable Integumentary: Unremarkable Neurological: Unremarkable Physical Examination - Physical Exam General: Alert, Oriented x3, Cooperative, Mild distress HEENT: Atraumatic, Normocephalic, PERRLA Neck: Supple, JVD not distended Respiratory: Clear to auscultation bilaterally Cardiovascular: No edema, Normal pulses, Regular rate/rhythm, Normal S1 S2, No gallops, No rubs, No murmurs Capillary refill: <2 Seconds Gastrointestinal: Non-distended, No tenderness, No masses, Hyperactive Musculoskeletal: No swelling, No erythema, No tenderness Integumentary: No breakdown, Warmth Neurological: Normal speech, Normal strength at 5/5 x4 extr, Sensation intact - Studies Laboratory Data (last 24 hrs) 10/27/22 10/27/22 10/27/22 10:59 10:59 10:59 WBC 5.30 Hgb 11.7 L Hct 34.0 L Plt Count 331 PT 12.9 H INR 1.17 Sodium 138 Potassium 3.0 L BUN 18 Creatinine 0.57 Glucose 96 Magnesium 1.7 Total Bilirubin 0.5 AST 43 H ALT 72 H Alkaline Phosphatase 55 Assessment and Plan - Problems (Diagnosis) (1) COVID Current Visit: Yes Status: Suspected (2) Bilateral pneumonia Current Visit: Yes Status: Acute - Plan Assessment and Plan Bilateral pneumonia d/t SARS-associated with coronavirus Acute hypoxic respiratory failure -SOB, lightheaded -on 3 LNC -zithromax and rocephin -gentle IVF -isolation -duonebs PRN Nausea vomiting diarrhea -monitor symptoms -zofran on hold for now -gentle IVF Hypokalemia -K 3.0 -potassium 40 mEq PO -monitor in AM labs History of hypothyroidism -continue home synthroid History of GERD -continue home omeprazole DVT ppx: lovenox full code regular diet - Advance Directives Does patient have a Living Will: No Does patient have a Durable POA for Healthcare: No - Code Status/Comfort Care Code Status Assessed: Yes Code Status: Full Code
[2022-10-27] MEDS ORDERED: ALBUTEROL 2.5 MG/3 ML NEB SOL NEB PRN (19:00)
[2022-10-27] MEDS: CEFTRIAXONE 1,000 MG in NA CHLORIDE 0.9% 50 ML IVPB SCH (20:19)
[2022-10-27] MEDS ORDERED: MELATONIN 5 MG TABLET PO PRN (21:35)
[2022-10-27] MEDS ORDERED: MELATONIN 5 MG TABLET PO ONE (21:48)
[2022-10-27 22:59] VITALS: BMI 23.5
[2022-10-28 03:11] LABS: Absolute Lymphocytes (CBC) 0.5 K/uL (0.7-4.9); Hematocrit 31.6 % (36.0-45.0); Lymphocytes % 11.1 % (15.3-44.8); MCV 87.3 fL (80-100); MPV 7.3 fL (7.6-11.3); Platelets 320 thou/uL (152-406); RBC Red Blood Cell Count 3.61 M/uL (3.86-4.86)
[2022-10-28 03:26] LABS: Albumin 2.3 g/dL (3.4-5.0)
[2022-10-28] MEDS: CEFTRIAXONE 1,000 MG in NA CHLORIDE 0.9% 50 ML IVPB SCH (08:13)
[2022-10-28] MEDS ORDERED: ENOXAPARIN 40 MG/0.4 ML SQ SCH (09:00)
[2022-10-28] MEDS ORDERED: AZITHROMYCIN IV 500 MG in NA CHLORIDE 0.9% 250 ML IVPB SCH (09:00)
[2022-10-28] MEDS ORDERED: APIXABAN 5 MG TABLET PO SCH ×2 (09:57→21:00)
[2022-10-28] MEDS ORDERED: Oxycodone HCl/Acetaminophen 1 TAB TAB PO PRN (09:58)
[2022-10-28] MEDS ORDERED: ARFORMOTEROL TARTRATE 15 MCG/2 ML VIAL.NEB NEB SCH (10:50)
[2022-10-28] MEDS: dexAMETHasone 4 MG TAB PO SCH ×2 (11:30→21:33)
--- NOTE | 2022-10-28 11:54 | P.PN ---
Subjective Date of Service: 10/28/22 Chief Complaint: SOB, lightheaded Patient is 77 years of age developed COVID at the end of September and started complaining of shortness of breath chest pressure came into the hospital no prior history of coronary artery disease, cardiac history of any pulmonary disease still complains of feeling pressure in her chest Review of Systems 10-point ROS is otherwise unremarkable Physical Examination - Vital Signs Temperature: 97.2 F Blood Pressure: 117/68 Pulse: 60 Respirations: 18 Pulse Ox (%): 93 - Physical Exam General: Alert, In no apparent distress, Oriented x3 HEENT: Atraumatic Neck: Supple Respiratory: Clear to auscultation bilaterally Assessment And Plan - Current Problems (Diagnosis) (1) COVID Current Visit: Yes Status: Suspected Plan: Patient is 77 years of age admitted with shortness of breath and chest pressure developed COVID at the end of September chest x-ray shows bilateral patchy opacity most likely she has had COVID-pneumonia to treat her with bronchodilators and steroids patient's vital signs are all stable check room air pulse ox ambulate possible discharge tomorrow on steroids bronchodilators and may need oxygen Discharge Plan: Home Plan to discharge in: 24 Hours
[2022-10-28] MEDS: DULERA 200/5 (MOMETASONE/FORMOTEROL) INHALER IH SCH ×2 (12:56→21:34)
--- NOTE | 2022-10-28 16:35 | EKG ---
Test Date: 2022-10-27 Test Time: 13:10:11 Prorate Clerk: LEILANI MEASUREMENT RESULTS: Intervals: Rate: 62 VA: 162 QRSD: 74 QT: 418 QTc: 424 [place]: P: 58 VA: 162 QRS: 46 T: 126 INTERPRETIVE STATEMENTS: Normal sinus rhythm Nonspecific ST and T wave abnormality Abnormal ECG Compared to ECG 10/24/2022 13:39:22 ST (T wave) deviation now present T-wave abnormality no longer present Electronically Signed On 10-28-22 16:32:06 CDT by Hemanth Baca
[2022-10-28] MEDS ORDERED: DIPHENHYDRAMINE 25 MG TAB/CAP PO ONE (22:49)
[2022-10-29 05:54] LABS: Absolute Lymphocytes (CBC) 0.5 K/uL (0.7-4.9); Hematocrit 31.1 % (36.0-45.0); Lymphocytes % 5.2 % (15.3-44.8); MCV 88.2 fL (80-100); Platelets 351 thou/uL (152-406); RBC Red Blood Cell Count 3.52 M/uL (3.86-4.86)
[2022-10-29] MEDS: LEVOTHYROXINE SOD 0.125 MG TAB PO SCH (05:56)
[2022-10-29 06:09] LABS: Albumin 2.3 g/dL (3.4-5.0); Magnesium 1.9 mg/dL (1.6-2.4); Phosphorus 3.7 mg/dL (2.5-4.9); Potassium 4.1 mEq/L (3.5-5.1)
[2022-10-29] MEDS: PANTOPRAZOLE 40MG TABLET PO SCH (08:13)
[2022-10-29] MEDS: dexAMETHasone 4 MG TAB PO SCH (08:13)
[2022-10-29] MEDS: DULERA 200/5 (MOMETASONE/FORMOTEROL) INHALER IH SCH ×2 (08:13→21:00)
[2022-10-29] MEDS ORDERED: HOME MED 1 EA UNK (Omeprazole [Prilosec] 40 MG Capsule.Dr) PO SCH (09:00)
--- NOTE | 2022-10-29 10:50 | P.PN ---
Subjective Date of Service: 10/29/22 Chief Complaint: Shortness of breath Patient is improving shortness of breath and chest pressure are improving complains of weakness relating to the bathroom Review of Systems General: Weakness Respiratory: Shortness of Breath Physical Examination - Vital Signs Temperature: 97.6 F Blood Pressure: 99/63 Pulse: 64 Respirations: 22 Pulse Ox (%): 93 - Physical Exam General: Alert, In no apparent distress, Oriented x3 Neck: Supple Respiratory: Clear to auscultation bilaterally Cardiovascular: No edema, Regular rate/rhythm Assessment And Plan - Current Problems (Diagnosis) (1) COVID Current Visit: Yes Status: Suspected Plan: Patient is 77 years of age admitted with COVID she is doing much better shortness of breath has improved feeling very weak vital signs oxygenation satisfactory patient to be discharged home tomorrow does not require home oxygen under the care of her relatives to continue with low-dose Decadron
[2022-10-29 20:41] VITALS: O2SAT 91
[2022-10-30] MEDS: LEVOTHYROXINE SOD 0.125 MG TAB PO SCH (07:08)
[2022-10-30 07:31] LABS: Hematocrit 30.5 % (36.0-45.0); Lymphocytes % 14.3 % (15.3-44.8); MCV 88.3 fL (80-100); Platelets 329 thou/uL (152-406); RBC Red Blood Cell Count 3.45 M/uL (3.86-4.86)
[2022-10-30 07:52] LABS: Albumin 2.3 g/dL (3.4-5.0); Phosphorus 2.3 mg/dL (2.5-4.9); Potassium 3.7 mEq/L (3.5-5.1)
[2022-10-30] MEDS ORDERED: dexAMETHasone 4 MG TAB PO SCH (09:00)
[2022-10-30] MEDS: PANTOPRAZOLE 40MG TABLET PO SCH (09:29)
[2022-10-30] MEDS: DULERA 200/5 (MOMETASONE/FORMOTEROL) INHALER IH SCH (09:30)
[2022-10-30 10:02] VITALS: BP 118/66; TEMP 97.7
--- NOTE | 2022-10-30 10:09 | P.DS ---
Admission Date: 10/27/22 Discharge Date: 10/30/22 Disposition: ROUTINE DISCHARGE Discharge Condition: GOOD Reason for Admission: Shortness of breath - Problems (1) COVID Current Visit: Yes Status: Suspected Brief History of Present Illness: Patient is 77 years of age admitted with COVID-pneumonia and shortness of breath Hospital Course: She was admitted to the hospital complaining of shortness of breath he was treated with steroids and bronchodilators and improved at the time of discharge patient was doing better ambulating off oxygen to discharge home on low-dose Decadron continue with Dulera from the hospital and use albuterol as needed resume all her home medication at time of discharge she was alert oriented x3 e ating and drinking vital signs all stable chest clear abdomen soft cardiovascular stoma sounds normal discharged to follow-up with [facility] Vital Signs/Physical Exam: Temp Pulse Resp BP Pulse Ox 97.7 F 75 18 118/66 94 10/30/22 08:00 10/30/22 08:00 10/30/22 08:00 10/30/22 08:00 10/30/22 08:00 Laboratory Data at Discharge: WBC 7.00 thou/uL (4.3-10.9) 10/30/22 06:57 Hgb 10.6 g/dL (12.0-15.0) L 10/30/22 06:57 Hct 30.5 % (36.0-45.0) L 10/30/22 06:57 Plt Count 329 thou/uL (152-406) 10/30/22 06:57 PT 12.9 SECONDS (9.5-12.5) H 10/27/22 10:59 INR 1.17 10/27/22 10:59 Sodium 138 mEq/L (136-145) 10/30/22 06:57 Potassium 3.7 mEq/L (3.5-5.1) 10/30/22 06:57 BUN 19 mg/dL (7-18) H 10/30/22 06:57 Creatinine 0.58 mg/dL (0.55-1.02) 10/30/22 06:57 Glucose 80 mg/dL (74-106) 10/30/22 06:57 Phosphorus 2.3 mg/dL (2.5-4.9) L 10/30/22 06:57 Magnesium 2.0 mg/dL (1.6-2.4) 10/30/22 06:57 Total Bilirubin 0.5 mg/dL (0.2-1.0) 10/27/22 10:59 AST 43 U/L (15-37) H 10/27/22 10:59 ALT 72 U/L (13-56) H 10/27/22 10:59 Alkaline Phosphatase 55 U/L (45-117) 10/27/22 10:59 Home Medications: Levothyroxine [Synthroid*] 1 tab PO DAILY 10/27/22 Omeprazole [Prilosec] 1 tab PO DAILY 10/27/22 Albuterol Inhaler [Ventolin Inhaler*] 2 puff IH Q6H PRN 30 Days #120 aero 10/30/22 dexAMETHasone [Decadron*] 2 mg PO DAILY 10 Days #10 tab 10/30/22 New Medications: dexAMETHasone [Decadron*] 2 mg PO DAILY 10 Days #10 tab Albuterol Inhaler [Ventolin Inhaler*] 2 puff IH Q6H PRN 30 Days #120 aero PRN Reason: Shortness Of Breath Physician Discharge Instructions: Please give patient Dulera from the hospital to take 2 puffs twice a day Diet: Regular Activity: Ad stuart Followup: Greg Putnam MD [ACTIVE - CAN ADMIT] - NONE,NONE [Primary Care Provider] -
== END 2022-10-30 11:43 | disposition home or self-care (01) | DRG 177 ==
LOC: ER 10:26 → ERHOLD 15:34 → 4TH 17:24
PROVIDERS: ADMIT Internal Medicine Sleep Medicine; ATTEND Internal Medicine Sleep Medicine
DX: U07.1 COVID-19 (principal); J12.82 Pneumonia due to coronavirus disease 2019; J96.01 Acute respiratory failure with hypoxia; E03.9 Hypothyroidism, unspecified; K21.9 Gastro-esophageal reflux disease without esophagitis; E87.6 Hypokalemia; I25.10 Atherosclerotic heart disease of native coronary artery without angina pectoris; Z88.5 Allergy status to narcotic agent; Z79.890 Hormone replacement therapy; Z79.899 Other long term (current) drug therapy
CPT/HCPCS: 36415; 71045; 80048; 80069; 80076; 83605; 83735; 83880; 84484; 85025; 85610; 86140; 87040; 93005; 94640; 96374; 96375; 99285; J0696; J1650; J2930; J3535; J7030; J7050; J7605; J7613; J8540